=== PATIENT | female | born 2000 | race Caucasian/White ===

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

== ENCOUNTER 2022-06-18 02:16 | Emergency (ER) | payer MEDICAID ==
[~2022-06-18] VITALS: Ht 170.1 cm; Wt 83.9 kg
== END 2022-06-18 04:37 | disposition home or self-care (01) ==
LOC: ED 02:16
DX: T50.901A Poisoning by unspecified drugs, medicaments and biological substances, accidental (unintentional), initial encounter (principal); Y92.89 Other specified places as the place of occurrence of the external cause

== ENCOUNTER 2022-09-25 14:48 | Emergency (ER) | payer MEDICAID ==
[~2022-09-25] VITALS: Ht 160 cm; Wt 54.4 kg
== END 2022-09-25 16:17 ==
LOC: ED 14:48
DX: S60.221A Contusion of right hand, initial encounter (principal); F32.A Depression, unspecified; F41.9 Anxiety disorder, unspecified; Z90.89 Acquired absence of other organs; Z98.890 Other specified postprocedural states; X58.XXXA Exposure to other specified factors, initial encounter; Y93.02 Activity, running; Y92.239 Unspecified place in hospital as the place of occurrence of the external cause; Y99.8 Other external cause status

== ENCOUNTER 2023-03-17 23:24 | Emergency (ER) | payer OTHER ==
[2023-03-17 23:54] LABS: BASO # 0.1 10*3/uL (0.0-0.1); BASO % 0.9 % (0.0-1.0); EOS # 0.1 10*3/uL (0.0-0.4); EOS % 0.8 % (1.0-4.0); HEMATOCRIT 34.4 % (37.0-47.0); LYMPH # 3.7 10*3/uL (1.3-4.4); LYMPH % 43.6 % (27.0-41.0); MEAN CORPUSCULAR HGB 29.1 pg (27.0-31.0); MEAN PLATELET VOLUME 11.6 fl (9.6-12.3); MONO # 0.5 10*3/uL (0.1-1.0); MONO % 5.3 % (3.0-9.0); NEUT # 4.2 10*3/uL (2.3-7.9); NEUT % 49.2 % (47.0-73.0); PLATELET COUNT AUTOMATED 253 10*3/uL (130-400); RED BLOOD COUNT 3.78 10*6/uL (4.10-5.10); WHITE BLOOD COUNT 8.5 10*3/uL (4.8-10.8)
[2023-03-17 23:56] VITALS: BP 79/40
[2023-03-18 00:05] VITALS: BP 84/41
[2023-03-18 00:05] LABS: ACT PARTIAL THROMBO TIME 24.8 SECONDS (20.0-32.1); INTERNATIONAL NORM RATIO 1.2 (2.0-3.5)
[2023-03-18 00:19] LABS: ALKALINE PHOSPHATASE 50 U/L (46-116); BUN 6 mg/dl (9-23); CHLORIDE 110 mmol/L (98-107); LIPASE 32 U/L (12-53); POTASSIUM 2.8 mmol/L (3.4-5.1); SGPT/ALT 11 U/L (10-49); TOTAL PROTEIN 5.8 gm/dL (6.0-8.0)
[2023-03-18 00:24] VITALS: BP 88/45
[2023-03-18 00:24] LABS: BILIRUBIN Negative (Negative); BLOOD Negative (Negative); CLARITY Clear (Clear); COLOR Yellow (Yellow); GLUCOSE Negative (Negative); KETONE Negative (Negative); LEUKO ESTERASE Negative (Negative); NITRITE Negative (Negative); SPECIFIC GRAVITY <= 1.005 (1.001-1.030); UROBILINOGEN 0.2 E.U./dl (0.0-1.0)
[2023-03-18 00:27] VITALS: BP 83/48
[2023-03-18 00:31] LABS: EPITHELIAL CELLS 0-2; WBC 0-2 wbc/hpf (0-5)
[2023-03-18 01:10] VITALS: BP 98/68
== END 2023-03-18 01:10 | disposition short-term general hospital (02) ==
LOC: ED 23:24
PROVIDERS: Internal Medicine
DX: S51.811A Laceration without foreign body of right forearm, initial encounter (principal); R58 Hemorrhage, not elsewhere classified; F31.9 Bipolar disorder, unspecified; Z96.22 Myringotomy tube(s) status; W22.09XA Striking against other stationary object, initial encounter; Y93.89 Activity, other specified; Y92.89 Other specified places as the place of occurrence of the external cause; Y99.8 Other external cause status